=== PATIENT | female | born 1965 | race Caucasian/White ===

== ENCOUNTER 2017-08-22 05:36 | Observation (INO) | payer OTHER ==
[2017-08-19 10:34] VITALS: BMI 28.0
[~2017-08-22] VITALS: Ht 165.1 cm; Wt 76.4 kg
[2017-08-22] VITALS (8 sets, daily range): BP systolic 109–136; BP diastolic 40–85; PULSE 76–104; TEMP 36.3–36.9; O2SAT 93–98; Ht 165.1 cm; Wt 76.4 kg
[~2017-08-22 05:36] MED LIST: BCPILLS PO; BUSP15TA70 PO; GARL10007 PO; MULT-506 PO; PROP80TA2 PO; SERT100T PO
[2017-08-22] MEDS ORDERED: LACTATED RINGER'S 1000ML 1,000 ML IV SCH ×3 (06:00→12:00)
[2017-08-22] MEDS ORDERED: CEFAZOLIN 2000MG IV PUSH 10 ML IV SCH (06:00)
[2017-08-22] MEDS ORDERED: CEFAZOLIN 3000MG IV PUSH 15 ML IV SCH (06:00)
[2017-08-22 06:37] LABS: MEAN CELL VOLUME 91.5 fL (80-100); MEAN CORPUSCULAR HEMOGLOBIN 30.7 pg (25-34); MEAN PLATELET VOLUME 9.9 fL (7.4-10.4); PLATELET COUNT 309 K/uL (130-400); RED BLOOD COUNT 4.37 M/uL (4.2-5.4); WHITE BLOOD COUNT 8.03 K/uL (4.8-10.8)
[2017-08-22 06:40] LABS: MEAN CORPUSCULAR HGB CONC 33.5 g/dl (32-36)
[2017-08-22] MEDS ORDERED: DEXAMETHASONE SOD INJ 4 MG/ML VIAL ONE (06:47)
[2017-08-22] MEDS ORDERED: PROPOFOL IV EMULSION 10 MG/ML 20 ML VIAL IV ONE (06:47)
[2017-08-22] MEDS ORDERED: FENTANYL CITRATE INJ 50 MCG/1 ML 2 ML VIAL ONE ×2 (06:47→08:01)
[2017-08-22] MEDS ORDERED: ONDANSETRON INJ 2 MG/ML 2 ML VIAL ONE ×2 (06:47→08:44)
[2017-08-22] MEDS ORDERED: CISATRACURIUM BESYLATE IV SOLN 2 MG/ML 10 ML VIAL ONE (06:47)
[2017-08-22] MEDS ORDERED: MIDAZOLAM HCL 1 MG/ML 2ML VIAL ONE (06:47)
[2017-08-22] MEDS ORDERED: HYDROmorphone INJ 2 MG/ML SYR/VIAL ONE (06:48)
[2017-08-22] MEDS ORDERED: SODIUM CHLORIDE 0.9% INJ 10 ML VIAL ONE (06:52)
[2017-08-22] MEDS ORDERED: METHYLENE BLUE 0.5% 10 ML VIAL ONE (06:59)
[2017-08-22] MEDS ORDERED: SCOPOLAMINE 1.5 MG TDSY TD ONE ×2 (07:03→07:15)
--- NOTE | 2017-08-22 07:14 | History & Physical Bridge Note ---
H&P Re-Evaluation Bridge Note: I have examined the patient, reviewed the History & Physical and in the interval since the performance of the History & Physical I have noted the following changes of clinical significance: No changes noted
[2017-08-22] MEDS ORDERED: HYDROmorphone INJ 2 MG/ML SYR/VIAL IV PRN (07:15)
[2017-08-22] MEDS ORDERED: EpHEDrine SULFATE INJ 50 MG/ML AMP IV PRN (07:15)
[2017-08-22] MEDS ORDERED: NALOXONE HCL 0.4 MG/1 ML VIAL/CARP IV PRN (07:15)
[2017-08-22] MEDS ORDERED: ONDANSETRON INJ 2 MG/ML 2 ML VIAL IV PRN ×2 (07:15→10:15)
[2017-08-22] MEDS ORDERED: PHENYLEPHRINE 100MCG/ML 5ML SYR IV PRN (07:15)
[2017-08-22] MEDS ORDERED: LABETALOL HCL IV 5 MG/ML 20ML IV PRN (07:15)
[2017-08-22] MEDS ORDERED: FENTANYL CITRATE INJ 50 MCG/1 ML 2 ML VIAL IV PRN (07:15)
[2017-08-22] MEDS ORDERED: MEPERIDINE HCL 25 MG/ML CARP IV PRN (07:15)
[2017-08-22] MEDS ORDERED: ATROPINE SULFATE 0.1 MG/ML 5ML SYR IV PRN (07:15)
[2017-08-22] MEDS ORDERED: FLUMAZENIL 0.1 MG/1 ML 10 ML VIAL IV PRN (07:15)
[2017-08-22] MEDS ORDERED: OXYC-57 PO (07:15)
--- NOTE | 2017-08-22 07:17 | Discharge Instructions ---
Discharge Instructions Date of Service Aug 22, 2017. Visit Reason for Visit: Abnormal Uterine Bleeding, Chronic Migraine Discharge Discharge Diagnosis / Problem: Hysterectomy BSO Discharge Goals Goal(s): Specific goals Activity Recommendations Activity Limitations: per Instructions/Follow-up section Anesthesia . Post Anesthesia Instructions: If you have had General Anesthesia or IV Sedation: * Do not drive today. * Resume driving when surgeon permits. * Do not make important decisions or sign legal documents today. * Call surgeon for: 1. Temperature elevations greater than 101 degrees F. 2. Uncontrollable pain. 3. Excessive bleeding. 4. Persistent nausea and vomiting. 5. Medication intolerance (nausea, vomiting or rash). * For nausea and vomiting use only clear liquids such as: tea, soda, bouillon until nausea subsides, then gradually increase diet as tolerated. * If you have any concerns or questions, call your surgeon's office. If physician is unavailable and it is an emergency, call 911 or go to the nearest emergency room. . Instructions / Follow-Up Instructions / Follow-Up POST OPERATIVE: BOWEL FUNCTION/MEDICATIONS: 1. Constipation pain and discomfort are the most common complaints 5-7 days after surgery. Points 2-6 address the things that can help. 2. Chewing gum can help stimulate the gut and help improve digestion and motility. 3. Milk of Magnesia 1-2 times per day until return of bowel function. 4. Colace is a stool softener that helps. Taking this 2-3 times per day until bowel function returns to normal is highly recommended. 5. Dulcolax is a laxative that may be used if several days have passed without a bowel movement. Alternatively Miralax may be used daily instead. 6. Drink plenty of fluids as this will also reduce constipation. 7. Narcotic pain medications will be prescribed by your physician. They are safe to use and we encourage you to use them. If you are not allergic, ibuprofen will also be prescribed. Many patients will be able to transition off of the narcotic medications to ibuprofen by postoperative day 3. ACTIVITY RECOMMENDATIONS: 1. Get plenty of rest and listen to your body. If you are tired, take a nap. 2. You may shower, but do not take a tub bath until you see your doctor at the 2 week post operative visit. 3. Absolutely NO intercourse and nothing in the vagina until you are examined by your doctor at the 6 week visit. At that visit it will be determined when such activities can be resumed. This can range from 6-12 weeks after your surgery depending on healing time. 4. The main physical activity in the first week should be walking. By the second week you can slowly increase activity. There are no limits on walking up and down stairs. 5. Do not lift more than 5-10 lbs for 4 weeks. Remember the "one-handed rule", i.e. if you can lift something with only one hand it's likely okay. 6. Minimize probation supervisor like vacuuming and exercising for 4 weeks. "Overdoing it" can lead to incisions not healing, pain and vaginal bleeding , so again, listen to your body. 7. Driving can be resumed when you feel able. Do not drive within 24 hours of taking a narcotic medication. EXPECTATIONS: 1. Vaginal spotting, bleeding and discharge are common after surgery. There may even be an odor to the discharge which is often related to sutures used in the vagina. If you experience heavy vaginal bleeding, call the office number day or night [phone]. 2. Bladder discomfort is common after surgery from the catheter. This usually resolves in 1-2 weeks. 3. By the end of the 3rd or 4th week you should be feeling much better. It may take up to 6 weeks for your energy levels to return to normal. 4. Narcotic medications have side effects such as: dizziness, headache, nausea and/or vomiting. If you suspect your pain medication is causing problems, call our office and we may be able to prescribe an alternate medication. 5. The skin incisions are often covered with a liquid bandage. This will gradually peel off over time. CALL THE OFFICE IF YOU HAVE ANY OF THE FOLLOWIN. Temperature of 101 degrees or higher. 2. Severe abdominal or pelvic pain not relieved by pain medication. 3. Persistent nausea or vomiting. 4. Increased pain with urination or difficulty urinating. 5. Bright red bleeding that soaks more than 1 pad per hour. CONTACT PHONE NUMBERS: Main Office: [phone] Surgical Nurse: [phone] extension [phone] FOLLOW-UP: Post-Operative Appointments: * Individual instructions will have been given about the timing of your first examination, but this is usually at the end of the second week home. * You will need to call the office at soon after discharge to make the appointment for your post-op check-up if it has not already been scheduled. * Additional information regarding activity, sexual intercourse and when to return to work will be given at this appointment. WE WISH YOU A SPEEDY RECOVERY! Diet Recommendations Recommended Home Diet: resume previous diet Pending Studies Studies pending at discharge: no Medical Emergencies . Who to Call and When: Medical Emergencies: If at any time you feel your situation is an emergency, please call 911 immediately. . Non-Emergent Contact Non-Emergency issues call your: Primary Care Provider . . "Provider Documentation" section prepared by Yusra Price. . [place] Drug Monitoring Program Search Results: no issues identified
[2017-08-22] MEDS ORDERED: CEFAZOLIN SOD 2000MG/10 ML IV PUSH IV ONE (07:23)
[2017-08-22] MEDS ORDERED: EpHEDrine SULFATE 50MG/5ML SYR ONE (08:06)
[2017-08-22] MEDS ORDERED: PHENYLEPHRINE 100MCG/ML 5ML SYR ONE (08:06)
--- NOTE | 2017-08-22 08:53 | [facility] Post Operative Brief Note ---
Immediate Operative Summary Operative Date Aug 22, 2017. Pre-Operative Diagnosis Menorrhagia, migraines Post-Operative Diagnosis Menorrhagia, migraines Procedure(s) Performed Total Laparoscopic Hysterectomy; Bilateral Salpingo-Oophorectomy, Cystoscopy Yesi Surgeon Dr. Yusra Price Legal Assistant Surgeon(s) None Estimated Blood Loss 10 mL Findings fibroid uterus. Slightly enlarged L ovary. Normal right ovary and tubes. Specimens Permanent specimens A: Uterus, cervix, bilateral fallopian tubes and ovaries Complication(s) None Disposition Recovery Room / PACU
--- NOTE | 2017-08-22 09:09 | OPERATIVE REPORT ---
DATE OF OPERATION: 08/22/2017 PREOPERATIVE DIAGNOSES: 1. Menorrhagia. 2. Migraines. POSTOPERATIVE DIAGNOSES: Same. PROCEDURE: Total laparoscopic hysterectomy, BSO and cystoscopy. SURGEON: Yusra Price MD. HOSTEL PARENT: None. ESTIMATED BLOOD LOSS: 10 mL. FINDINGS: Fibroid uterus, slightly enlarged left ovary, normal right ovary and tubes. SPECIMENS: Uterus, cervix, bilateral fallopian tubes and ovaries. COMPLICATIONS: None. DISPOSITION: Stable to the recovery room. DESCRIPTION OF PROCEDURE: Edgar is a 51-year-old female who desired total laparoscopic hysterectomy. She was brought to the operating room, placed on the table in the dorsal lithotomy position with Yellofin stirrups, prepped and draped in standard sterile fashion and a hard time-out was taken prior to proceeding. A Fernand[employer] uterine manipulator were placed. Attention was then turned to the abdomen where optical entry was made above the umbilicus. The abdomen was then insufflated and patient was placed in Trendelenburg position. Under direct visualization, right and left lower quadrant ports were placed and the robot was then docked. Dissection began by opening the retroperitoneal space between the IP ligament and the round ligament on the right side, a window was created around the right IP ligament which was ligated and divided. Dissection was then carried up to the round ligament which was ligated and divided. The uterine artery was skeletonized. Attention was then turned to the left side where a retroperitoneal window was again created between the IP and the round ligament. A window was created around the IP, which was then ligated and divided. The round ligament was ligated and divided. The uterine artery was again skeletonized. At this point, the bladder flap was then created across the entire vesicovaginal flap and then each uterine artery was ligated and divided in turn. Circumferential colpotomy was then completed and the cervix, uterus, tubes, and both ovaries were delivered en block out the vagina. Using a V-Loc suture the upper vaginal cuff was closed in a running nonlocked manner as is typical. At the completion of the repair, the needle was removed via the robotic port. Please note that both prior to dissection beginning and after the dissection was completed, both ureters were easily visualized and they were seen to be peristalsing normally. Methylene blue was administered and cystoscopy then proceeded, which identified a jet of blue stained urine from each ureteral orifice. The bladder was then drained and closure of the port sites proceeded with a UR-6 at the fascial layer of the umbilicus, 4-0 Monocryl at all sites and Dermabond glue being applied to the skin. The patient was then transferred in stable condition to the recovery room. I attest to the content of the Intraoperative Record and any orders documented therein. Any exception s are noted below.
[2017-08-22] MEDS ORDERED: PROMETHAZINE HCL INJ 12.5 MG in SODIUM CHLORIDE 0.9% 50ML 50 ML IV PRN (10:15)
[2017-08-22] MEDS ORDERED: IBUPROFEN 600 MG TAB PO PRN (10:15)
[2017-08-22] MEDS ORDERED: MEPERIDINE HCL 50 MG/ML CARP IV PRN ×2 (10:15)
[2017-08-22] MEDS ORDERED: OXYCODONE/ACETAMINOPHEN 5-325 TAB PO PRN ×2 (10:15)
[2017-08-22] MEDS ORDERED: SIMETHICONE 80 MG CHEW PO PRN (10:15)
[2017-08-22] MEDS ORDERED: ACETAMINOPHEN 325 MG TAB PO PRN (10:15)
[2017-08-22] MEDS ORDERED: KETOROLAC TROMETHAMINE 30 MG/ML VIAL IV. PRN (10:15)
[2017-08-22] MEDS ORDERED: IV FLUIDS COMPLETED PRN (10:45)
--- NOTE | 2017-08-22 10:46 | Anesthesiology Progress Note ---
Anesthesia Post Op Note Date & Time Aug 22, 2017 at 10:46 Vital Signs Pain Intensity: 3 Vital Signs Past 12 Hours Date Time Temp Pulse Resp B/P (MAP) Pulse Ox O2 Delivery O2 Flow Rate FiO2 08/22/17 10:40 98 18 115/67 98 Nasal Cannula 4 08/22/17 10:30 98 16 115/64 99 Nasal Cannula 4 08/22/17 10:20 95 22 128/75 97 Nasal Cannula 4 08/22/17 10:10 36.6 93 18 121/95 98 Nasal Cannula 4 08/22/17 10:00 92 14 121/89 98 Oxymask 15 08/22/17 09:50 70 18 123/66 89 Oxymask 15 08/22/17 09:40 79 16 138/68 96 Oxymask 15 08/22/17 09:39 79 16 138/68 96 Oxymask 15 08/22/17 09:29 36.0 77 18 128/69 94 Oxymask 15 08/22/17 06:05 36.7 76 20 134/85 (101) 98 Room Air Notes Mental Status: alert / awake / arousable, participated in evaluation Pt Amnestic to Procedure: Yes Nausea / Vomiting: adequately controlled Pain: adequately controlled Airway Patency, RR, SpO2: stable & adequate BP & HR: stable & adequate Hydration State: stable & adequate Anesthetic Complications: no major complications apparent
[2017-08-22 15:24] LABS: HEMATOCRIT 36.7 % (37-47)
[2017-08-22] MEDS ORDERED: DOCUSATE SODIUM 100 MG CAP PO SCH (21:00)
--- NOTE | 2017-08-27 08:53 | Discharge Summary ---
Discharge Summary Date of Service Aug 27, 2017. Discharge Summary Admission Date: Aug 22, 2017 at 06:30 Discharge Date: Aug 22, 2017 Discharge Disposition: Home Principal Diagnosis: Menorrhagia Medication Reconciliation New Medications: Oxycodone/Acetaminophen 5MG/325MG (Percocet 5MG/325MG) Tab 1 TABLET PO Q4H PRN for Pain, #15 TAB Continued Medications: Buspirone Hcl (Buspar) 15 Mg Tab 7.5 MG PO BID, TAB Garlic (Garlic) 1,000 Mg Cap 1000 MG PO QAM Multivitamin (Multivitamin) Tab 1 TAB PO QAM, TAB Propranolol (Inderal) 80 Mg Tab 80 MG PO QAM, TAB Sertraline Hcl (Zoloft) 100 Mg Tab 200 MG PO HS, TAB Discontinued Medications: Control Pills ( Control Pills) Tab 1 TAB PO DAILY, TAB Hospital Course Total Time Spent: Less than 30 minutes This includes examination of the patient, discharge planning, medication reconciliation, and communication with other providers. Discharge Instructions Please refer to the electronic Patient Visit Report (Discharge Instructions) for additional information.
== END 2017-08-22 18:05 | disposition home or self-care (01) ==
LOC: C.ACU 05:36 → C.MS4N 06:30
PROVIDERS: ADMIT Obstetrics & Gynecology; ATTEND Obstetrics & Gynecology
DX: N92.0 Excessive and frequent menstruation with regular cycle (principal); G43.909 Migraine, unspecified, not intractable, without status migrainosus; N80.0 Endometriosis of uterus; N83.8 Other noninflammatory disorders of ovary, fallopian tube and broad ligament; Z88.0 Allergy status to penicillin; Z88.2 Allergy status to sulfonamides; Z79.3 Long term (current) use of hormonal contraceptives; I10 Essential (primary) hypertension; Z98.890 Other specified postprocedural states; Z82.49 Family history of ischemic heart disease and other diseases of the circulatory system

== ENCOUNTER → 2017-09-11 | Outpatient (CLI) | payer OTHER ==
[~2017-09-11] MED LIST changes: -BCPILLS PO; +OXYC-57 PO
[2017-09-11 16:38] LABS: ALBUMIN 3.9 gm/dl (3.4-5.0); ALT/SGPT 34 U/L (12-78); AST/SGOT 20 U/L (15-37); BLOOD UREA NITROGEN 18 mg/dl (7-18); CALCIUM 9.6 mg/dl (8.5-10.1); CARBON DIOXIDE 29 mmol/L (21-32); CREATININE 0.87 mg/dl (0.60-1.20); GLUCOSE 92 mg/dl (70-99); POTASSIUM 4.5 mmol/L (3.5-5.1); SODIUM 136 mmol/L (136-145)
[2017-09-11 16:40] LABS: ALKALINE PHOSPHATASE 75 U/L (45-117); TOTAL PROTEIN 7.8 gm/dl (6.4-8.2)
== END | disposition home or self-care (01) ==
LOC: C.LAB1850 12:04
PROVIDERS: ATTEND Obstetrics & Gynecology
DX: N28.9 Disorder of kidney and ureter, unspecified (principal)

== ENCOUNTER 2024-08-09 05:14 | Observation (INO) ==
--- NOTE | 2024-07-13 14:02 | PAT Medication Instructions ---
Medication Instructions Date of Service July 13, 2024 Home Medications Medication Instructions Recorded estradiol 10 mcg vaginal tablet 10 mcg vaginal 2XWK #24 tabs 02/10/24 (Yuvafem) omeprazole 20 mg capsule,delayed release 20 mg PO QPM atorvastatin 10 mg tablet (Lipitor) 10 mg PO QPM estradiol 10 mcg vaginal tablet (Yuvafem) 10 mcg vaginal 2XWK Vitamin B2 With Magnesium 1 tab PO DAILY calcium 600 mg (as carbonate)-vitamin D3 5 mcg (200 unit) tablet 1 tab PO DAILY sertraline 100 mg tablet 200 mg PO HS anxiety DO NOT take the morning of surgery estradiol 10 mcg vaginal tablet (Yuvafem) 10 mcg vaginal 2XWK Vitamin B2 With Magnesium 1 tab PO DAILY calcium 600 mg (as carbonate)-vitamin D3 5 mcg (200 unit) tablet 1 tab PO DAILY Take evening before surgery omeprazole 20 mg capsule,delayed release 20 mg PO QPM atorvastatin 10 mg tablet (Lipitor) 10 mg PO QPM sertraline 100 mg tablet 200 mg PO HS anxiety MORNING OF SURGERY: NOTHING TO EAT OR DRINK AFTER MIDNIGHT Other Notes If you have any questions please call us at [phone] or [phone] or [phone] or [phone]
--- NOTE | 2024-07-19 14:20 | Anesthesiology Consultation ---
Date of Service July 19, 2024 Assessment & Plan (1) Encounter for pre-operative examination: Chart Review Chart Review: Acceptable Risk for Surgery and Patient seen in Pre Admission Testing Teaching & Discussion Pre-Anesthesia Teaching/Discussion Notes: Instructed NPO after midnight before surgery, except medications with 15 cc of water. Medication instructions provided according to the PAT guidelines. History Surgery Operation Date: 08/09/24 12:50 Proposed Procedures p C5-C6 Artificial Disc Arthroplasty - Kranthi De La Rosa MD Height/Weight Height: 5 ft 5 in Weight: 80.6 kg Allergies Allergy/AdvReac Type Severity Reaction Status Date / Time Penicillins Allergy Unknown HIVES Verified 07/09/24 10:21 Sulfa (Sulfonamide Allergy Unknown HIVES Verified 07/09/24 10:21 Antibiotics) acetazolamide AdvReac Mild Verified 07/09/24 10:21 lamotrigine [From Lamictal] AdvReac Mild Nausea Verified 07/09/24 10:21 fluoxetine AdvReac Unknown HYPERACTIVI Verified 07/09/24 10:21 TY olanzapine AdvReac "made her Verified 07/09/24 10:21 dizzy" zolmitriptan AdvReac Chest Verified 07/09/24 10:21 pressure, dizziness, fatigue Medications Home Medications Medication Instructions Recorded Confirmed Last Taken omeprazole 20 mg capsule,delayed 20 mg PO QPM 02/13/22 07/09/24 Unknown release atorvastatin 10 mg tablet (Lipitor) 10 mg PO QPM 05/27/22 07/09/24 Unknown estradiol 10 mcg vaginal tablet 10 mcg vaginal 2XWK #24 tabs 02/10/24 07/09/24 Unknown (Yuvafem) Vitamin B2 With Magnesium 1 tab PO DAILY 07/09/24 07/09/24 Unknown calcium 600 mg (as 1 tab PO DAILY 07/09/24 07/09/24 Unknown carbonate)-vitamin D3 5 mcg (200 unit) tablet sertraline 100 mg tablet 200 mg PO HS anxiety 07/09/24 07/09/24 Unknown Past Medical History Medical History (Updated 07/21/24 @ 14:11 by Gricelda Dave PA-C) Anxiety Arnold-Chiari malformation follows with [facility], last office visit 11/27/23 Cervical disc disorder at C5-C6 level with radiculopathy Depression GERD (gastroesophageal reflux disease) controlled, stable per pt H/O irritable bowel syndrome History of anesthesia reaction "they said i fight when i'm under" - reports only for colonoscopy History of postoperative nausea and vomiting zofran helps, denies needing scop patch Hx of ovarian cyst Hypertension controlled, stable per pt Migraine with aura 2x per month with loss of vision- no meds- has had numerous testing - reports "it always feels like I'm floating" PTSD (post-traumatic stress disorder) Patient denies h/o stroke, seizures, heart attack, heart failure, DM, blood clots/DVTs or blood transfusions. Exercise / Class Metabolic Activity II 4-5 Yardwork/Stairs/Walk up hill (denies chest discomfort or shortness of breath with one flight of stairs) Past Family History Family History Mother Myocardial infarction, Onset Age: 42 Father Prostate cancer Pure hypercholesterolemia Family/Other Hypertension Murmur Sister Asthma Allergic rhinitis Past Surgical History Surgical History History of carpal tunnel surgery of right wrist with local History of total hysterectomy with bilateral salpingo-oophorectomy (BSO) For: Adeno/Fibroids/menorrhagia/menstrual migraines Hx of colonoscopy S/P sinus surgery S/P tonsillectomy S/P wisdom tooth extraction Past Anesthesia History No Family Hx of Anesthesia Complications History of PONV History of PONV (denies needing scop patch) and Hx of Motion Sickness Social History Smoking Status: Never smoker Do You Dip or Chew Tobacco: No Hx Alcohol Use: No Hx Substance Use: No substance use type: does not use Review of Systems Patient denies chest pain, shortness of breath, dyspnea on exertion, fever, chills, cough, wheezing, or palpitations. Physical Exam Vital Signs Vitals BP 132/84 P 92 TEMP 98.2 SP02 98% on RA RESP 18 Physical Patient resting comfortably in chair in no acute distress, alert and oriented, responding appropriately throughout visit Full cervical extension range of motion without pain TMD 3.5 finger breadths Mallampati Score 3 Dentition: several implants and crowns, denies chipped or loose teeth, caps, or bridges Lungs: normal respiratory effort. Good air movement, clear throughout to auscultation, no adventitious breath sounds Cardiac: regular rate and rhythm, no murmurs noted Carotid arteries: negative bruit bilat Lab Results Anesthesia Preop Results Results Anesthesia Widget: WBC 7.95 K/ul (4.8-10.8) 07/19/24 Hgb 13.3 g/dl (12.0-16.0) 07/19/24 Hct 39.1 % (37.0-47.0) 07/19/24 Plt 252 K/uL (130-400) 07/19/24 Na 141 mmol/L (136-145) 07/19/24 K 4.0 mmol/L (3.5-5.1) 07/19/24 Cl 104 mmol/L (98-107) 07/19/24 CO2 28 mmol/L (21-32) 07/19/24 BUN 16 mg/dl (6-23) 07/19/24 Creat 0.69 mg/dl (0.6-1.2) 07/19/24 Glucose Level 109 mg/dl (70-99(Fasting)) H 07/19/24 PT 10.3 Seconds (9.0-12.0) 07/19/24 PTT 27 Seconds (21-31) 07/19/24 INR 0.9 (0.9-1.1) 07/19/24 Blood Type AB Positive 07/19/24 Antibody Screen NEGATIVE 07/19/24 Testing Electrocardiogram Date: 07/19/24 NSR, rate [address] abnormality Chest X-Ray Date: 07/19/24 No acute cardiopulmonary abnormalities identified. Cervical Spine Date: 06/02/24 1. Multilevel cervical spondylosis as above, greatest at C5-C6 and C6-C7. See discussion for detailed [id number] analysis. 2. No destructive bony process is seen. 3. The cervical cord is normal in morphology and signal intensity.
[2024-08-09] MEDS: VANCOMYCIN HCL 1,250 MG in SODIUM CHLORIDE 0.9% 250 ML IV SCH (05:59)
[2024-08-09] MEDS: LR 15ML/HR IV SCH (05:59)
[2024-08-09] MEDS: ACETAMINOPHEN 500 MG TAB PO SCH (06:01)
[2024-08-09] MEDS: GABAPENTIN 600 MG DOSE PO SCH (06:01)
[2024-08-09] MEDS: LR 60ML/HR IV SCH (06:02)
[2024-08-09] MEDS ORDERED: PROMETHAZINE HCL 6.25 MG in SODIUM CHLORIDE 0.9% 50 ML IV PRN (06:54)
[2024-08-09] MEDS ORDERED: ATROPINE SULFATE 0.1 MG/ML 10ML SYR IV PRN (06:54)
[2024-08-09] MEDS ORDERED: HYDROmorphone INJ 2 MG/ML SYR/VIAL IV PRN (06:54)
[2024-08-09] MEDS ORDERED: ePHEDrine sulfate 50 MG/ML AMP IV PRN (06:54)
[2024-08-09] MEDS ORDERED: PROPOFOL IV EMULSION 10 MG/ML 100 ML VIAL IV ONE (07:02)
[2024-08-09] MEDS ORDERED: PROPOFOL IV EMULSION 10 MG/ML 20 ML VIAL IV ONE (07:07)
[2024-08-09] MEDS ORDERED: ONDANSETRON INJ 2 MG/ML 2 ML VIAL ONE (07:07)
[2024-08-09] MEDS ORDERED: ROCURONIUM BROMIDE 10 MG/ML 5 ML VIAL IV ONE (07:07)
[2024-08-09] MEDS ORDERED: DEXAMETHASONE SOD INJ 4 MG/ML VIAL ONE (07:07)
[2024-08-09] MEDS ORDERED: MIDAZOLAM HCL 1 MG/ML 2ML VIAL ONE (07:07)
[2024-08-09] MEDS ORDERED: LIDOCAINE 2% 2 ML VIAL/AMP(20MG/ML) INFIL ONE (07:07)
[2024-08-09] MEDS ORDERED: fentaNYL citrate PF 100 MCG/2 ML VIAL ONE ×2 (07:07→08:26)
--- NOTE | 2024-08-09 07:19 | History & Physical Bridge Note ---
Date of Service August 09, 2024 History & Physical Bridge Note I have examined the patient, reviewed the History & Physical and in the interval since the performance of the History & Physical I have noted the following changes of clinical significance: no changes noted
[2024-08-09] MEDS ORDERED: SCOPOLAMINE 1 MG/72 HR TDSY PATCH TD ONE (07:29)
[2024-08-09] MEDS: VANCOMYCIN HCL 1000MG/20ML VIAL ONE (09:58)
[2024-08-09] MEDS: FLOSEAL HEMOSTATIC MATRIX 5ML TOP ONE (09:58)
[2024-08-09] MEDS: GELATIN SPONGE 12-7MM ONE (09:59)
[2024-08-09] MEDS: THROMBIN 5000 UNITS KIT ONE (09:59)
[2024-08-09] MEDS ORDERED: SUGAMMADEX SODIUM 200 MG/2 ML VIAL IV ONE (10:00)
--- NOTE | 2024-08-09 10:42 | Fluoroscopy Report ---
FL cervical 2-3V CLINICAL HISTORY: C5-C6 ARTIFICIAL DISC ARTHROPLASTY COMPARISON STUDY: Cervical spine MRI 06/02/2024 FLUOROSCOPY TIME: 89.8 seconds FLUOROSCOPY IMAGES: 6 EXPOSURE DOSE: 32.6 to mGy FINDINGS: Endotracheal tube is noted. Anterior approach discectomy changes are noted at what is label ed the C5-C6 level. No unexpected opaque foreign bodies. Note that the images were submitted followin g completion of the surgery. IMPRESSION: Fluoroscopic assistance as above. ACT 112: Negative or not required by law. Electronically signed by: Zachery Jordan M.D. 08/09/2024 10:39 AM
[2024-08-09] MEDS ORDERED: NALOXONE HCL 0.4 MG/1 ML VIAL/CARP IV PRN (10:55)
[2024-08-09] MEDS ORDERED: diphenhydrAMINE Capsule 25 MG CAP PO PRN (10:55)
[2024-08-09] MEDS ORDERED: ONDANSETRON INJ 2 MG/ML 2 ML VIAL IV PRN (10:55)
[2024-08-09] MEDS ORDERED: HYDROmorphone INJ 0.5 MG/0.5 ML SYR IV PRN (10:55)
[2024-08-09] MEDS ORDERED: DO NOT ADMINISTER FLU VACCINE PRN (10:55)
[2024-08-09] MEDS ORDERED: ONDANSETRON 4 MG OD TAB PO PRN (10:55)
[2024-08-09] MEDS ORDERED: METOCLOPRAMIDE HCL INJ 5 MG/ML 2 ML VIAL IV PRN (10:55)
[2024-08-09] MEDS ORDERED: ACETAMINOPHEN 1,000 MG/100 ML VIAL IV PRN (10:55)
[2024-08-09] MEDS ORDERED: hydrOXYzine HCl 25 MG TAB PO PRN (10:55)
[2024-08-09] MEDS ORDERED: DO NOT ADMINISTER PNEUMOCOCCAL VACCINE PRN (10:55)
[2024-08-09] MEDS ORDERED: LORazepam 0.5 MG TAB PO PRN (10:55)
[2024-08-09] MEDS ORDERED: MAGNESIUM HYDROXIDE SUSP 30 ML UDC PO PRN (10:55)
[2024-08-09] MEDS ORDERED: FAMOTIDINE 20 MG TAB PO PRN (10:55)
[2024-08-09] MEDS ORDERED: ALUMINUM/MAGNESIUM SUSP 30 ML UDC PO PRN (10:55)
[2024-08-09] MEDS ORDERED: SOD PHOSPHATE/SOD BIPHOSPHATE ENEMA 132 ML BTL PR PRN (10:55)
[2024-08-09] MEDS ORDERED: LORazepam 2 MG/1 ML VIAL IV PRN (10:55)
[2024-08-09] MEDS ORDERED: bisacodyL 10 MG SUPP PR PRN (10:55)
[2024-08-09] MEDS ORDERED: dexAMETHasone 8 MG in SYRINGE 0 ML IV PRN (10:55)
[2024-08-09] MEDS ORDERED: RACEPINEPHRINE 2.25% NEBU SOLN 0.5 ML VIAL INH PRN (10:55)
[2024-08-09] MEDS ORDERED: PROMETHAZINE 12.5 MG/50.5 ML BAG IV PRN (10:55)
--- NOTE | 2024-08-09 10:59 | Post Operative Brief Note ---
[facility] Immediate Post Op with CF Date of Surgery August 09, 2024 Pre & Post Diagnosis Operation Date: 08/09/24 07:15 Pre-Op Diagnosis: Cervical Disc Disorder at C5-C6 Level with Radiculopathy Post-Op Diagnosis: Cervical Disc Disorder at C5-C6 Level with Radiculopathy I identified the patient and participated in the time-out.: Yes Procedure Operation Date: 08/09/24 07:15 Actual Procedures p C5-C6 Artificial Disc Arthroplasty(Not Applicable) - Kranthi De La Rosa MD Surgeon Kranthi De La Rosa MD Multi Spindle Operator none Estimated Blood Loss 5 Findings Consistent with Post-Op Diagnosis Specimens Specimen Description: None per surgeon
[2024-08-09] MEDS: ALBUT/IPRATROP 3MG/0.5MG NEB 3 ML VIAL ONE (11:11)
[2024-08-09 12:00] LABS: BUN Creatinine Ratio 18.9 (10-20); Blood Urea Nitrogen 14 mg/dl (6-23); Calcium 8.8 mg/dl (8.6-10.3); Carbon Dioxide 25 mmol/L (21-32); Chloride 106 mmol/L (98-107); Creatinine Clr Calc Pharmacy 85.2 ml/min; Glucose 146 mg/dl (70-99(Fasting))
[2024-08-09] MEDS: ALBUT/IPRATROP 3MG/0.5MG NEB 3 ML VIAL NEB STA (12:42)
[2024-08-09 12:50] LABS: Potassium 3.9 mmol/L (3.5-5.1)
--- NOTE | 2024-08-09 15:13 | Anesthesiology Progress Note ---
Date of Service August 09, 2024 Anesthesia Post Procedure Vital Signs Vital Signs: Temp Pulse Pulse Resp BP Pulse Ox O2 Del Method 08/09/24 14:21 36.8 C 107 H 18 150/80 H 93 Nasal Cannula 08/09/24 14:03 103 H 16 97 Nasal Cannula 08/09/24 13:43 105 H 16 159/89 H 95 Nasal Cannula 08/09/24 12:59 36.6 C 107 H 18 154/87 H 92 Nasal Cannula 08/09/24 12:25 36.7 C 112 H 16 155/74 H 93 Nasal Cannula 08/09/24 12:00 104 H 16 152/72 H 95 Nasal Cannula 08/09/24 11:50 36.8 C 107 H 16 112/81 96 Nasal Cannula 08/09/24 11:40 105 H 13 151/78 H 97 Nasal Cannula 08/09/24 11:30 108 H 13 153/79 H 96 Nasal Cannula 08/09/24 11:20 105 H 15 155/89 H 97 Nasal Cannula 08/09/24 11:10 106 H 20 143/85 H 97 Nebulizer 08/09/24 11:00 108 H 15 154/94 H 99 Non-rebreather 08/09/24 10:50 104 H 21 156/89 H 93 Non-rebreather 08/09/24 10:40 86 14 155/82 H 93 Oxymask 08/09/24 10:30 83 17 139/86 94 Oxymask 08/09/24 10:22 36 C L 79 18 121/75 94 Oxymask 08/09/24 05:47 36.7 C 87 18 154/91 H 95 Room Air O2 Flow Rate 08/09/24 14:21 2 08/09/24 14:03 3 08/09/24 13:43 3 08/09/24 12:59 2 08/09/24 12:25 3 08/09/24 12:00 3 08/09/24 11:50 3 08/09/24 11:40 3 08/09/24 11:30 3 08/09/24 11:20 3 08/09/24 11:10 7 08/09/24 11:00 15 08/09/24 10:50 15 08/09/24 10:40 15 08/09/24 10:30 15 08/09/24 10:22 15 08/09/24 05:47 Transfer of Care Handoff Completed per policy Notes Mental Status: alert / awake / arousable and participated in evaluation Nausea / Vomiting: adequately controlled Pain: adequately controlled Airway Patency, RR, SpO2: stable & adequate BP & HR: stable & adequate Hydration State: stable & adequate Anesthetic Complications: no major complications apparent and Pt Satisfied with anesthetic care
--- NOTE | 2024-08-09 15:15 | Hospitalist Consultation ---
Date of Consultation August 09, 2024 Assessment & Plan (1) Cervical disc disorder at C5-C6 level with radiculopathy: S/p C5-C6 artificial disc arthroplasty 08/09 due to spondylosis, disc herniation, and cervical radiculopathy pre-op H&H stable, renal function stable, EKG NSR Ancef x 2 and Vanco x 1 stable post operatively - mildly tachycardic (107) and requiring 2L O2 via NC - expected HTN (165/93) with IV fluids and pain Pain management, VTE PPx, and bowel regimen per orthopedic team added AM CBC and BMP wean O2 as tolerated PT/OT to evaluate (2) Anxiety: continue home sertraline (3) GERD (gastroesophageal reflux disease): continue QPM PPI (4) Hyperlipidemia: continue home atorvastatin (5) Vestibular migraine: follows with neurology out patient - currently not on any medication Plan VTE ppx: per orthopedic team - SCDs Diet: advance as tolerated Dispo: med/surg Supervising Physician Co-Signing Physician Notes I personally saw and examined the patient. I independently reviewed the labs, imaging, problem list, medication list, past medical history and family history. I verified all saleh points and agree with Gladys Templeton PA-C with the following exceptions and/or additions: No acute concerns or questions from patient HS RRR, no murmurs, Chest CTAB, Abdo SNT No change to plan above History of Present Illness Reason for Consultation: surgery Requesting Physician: Dr. Estrella MD Attending Physician: Kranthi De La Rosa MD History of Present Illness Patient is a 58-year-old female with a past medical history of GERD, anxiety/depression, vestibular migraines, hyperlipidemia. She was seen at bedside due to a postop surgery consult. She had a 5 to C6 artificial disc arthroplasty today with Dr. De La Rosa. She is doing well postoperatively, has already walked a lap around the hallway has urinated twice. She stated that she does not have pain but more so soreness, 4/10. She does have some mild dizziness, denies nausea and vomiting. She has eaten a pudding without difficulty, advancing diet as tolerated for dinner. Patient denies vision changes, cough, dyspnea, dyspnea on exertion, chest pain, abdominal pain, nausea, vomiting, dysuria, hematuria, edema, numbness, tingling. Her home medications include atorvastatin, omeprazole, and sertraline. She stated that she no longer takes anything for her migraines as nothing has helped, has tried near 60 medications. She does not use oxygen at baseline. Denies history of nicotine use, alcohol use, VTE, DM, cancer. Allergies Allergy/AdvReac Type Severity Reaction Status Date / Time Penicillins Allergy Unknown HIVES Verified 08/09/24 05:43 Sulfa (Sulfonamide Allergy Unknown HIVES Verified 08/09/24 05:43 Antibiotics) acetazolamide AdvReac Mild Verified 08/09/24 05:43 lamotrigine [From Lamictal] AdvReac Mild Nausea Verified 08/09/24 05:43 fluoxetine AdvReac Unknown HYPERACTIVI Verified 08/09/24 05:43 TY olanzapine AdvReac "made her Verified 08/09/24 05:43 dizzy" zolmitriptan AdvReac Chest Verified 08/09/24 05:43 pressure, dizziness, fatigue Home Medications Medication Instructions Recorded Confirmed Type omeprazole 20 mg capsule,delayed 20 mg PO QPM 02/13/22 08/09/24 History release atorvastatin 10 mg tablet (Lipitor) 10 mg PO QPM 05/27/22 08/09/24 History estradiol 10 mcg vaginal tablet 10 mcg vaginal 2XWK #24 tabs 02/10/24 08/09/24 Rx (Yuvafem) Vitamin B2 With Magnesium 1 tab PO DAILY 07/09/24 08/09/24 History calcium 600 mg (as 1 tab PO DAILY 07/09/24 08/09/24 History carbonate)-vitamin D3 5 mcg (200 unit) tablet sertraline 100 mg tablet 200 mg PO HS anxiety 07/09/24 08/09/24 History oxycodone-acetaminophen 5 mg-325 1 tab PO TID #16 tabs 08/10/24 Rx mg tablet Patient History Medical History (Updated 08/09/24 @ 15:17 by Gladys Templeton PA-C) Cervical disc disorder at C5-C6 level with radiculopathy Migraine with aura 2x per month with loss of vision- no meds- has had numerous testing - reports "it always feels like I'm floating" Depression PTSD (post-traumatic stress disorder) Hx of ovarian cyst History of postoperative nausea and vomiting zofran helps, denies needing scop patch History of anesthesia reaction "they said i fight when i'm under" - reports only for colonoscopy Arnold-Chiari malformation follows with [place] [facility], last office visit 11/27/23 H/O irritable bowel syndrome Hypertension controlled, stable per pt Surgical History History of carpal tunnel surgery of right wrist with local Hx of colonoscopy History of total hysterectomy with bilateral salpingo-oophorectomy (BSO) For: Adeno/Fibroids/menorrhagia/menstrual migraines S/P tonsillectomy S/P sinus surgery S/P wisdom tooth extraction Family History Mother Myocardial infarction, Onset Age: 42 Father Prostate cancer Pure hypercholesterolemia Family/Other Hypertension Murmur Sister Asthma Allergic rhinitis Social History Smoking Status: Never smoker Second Hand Exposure: No; Do You Dip or Chew Tobacco: No; Hx Alcohol Use: No Hx Substance Use: No Preferred Language: Uzbek Communication Ability: Effective Manager Search Required: No Beliefs That Will Affect Care: None marital status: Current Living Situation: Spouse current occupational status: unemployed Feels Safe at Home: Yes Assistive Devices: Contacts Review of Systems Review of Systems: see HPI Physical Exam Physical Exam: The patient is awake, alert and oriented 3, well developed and well nourished, normocephalic and atraumatic, in no acute distress. Non-toxic appearing. HEENT- EOMI, mucous membranes moist. Hearing grossly intact. Neck collar in place. Heart-normal S1 and S2. No murmurs, rubs or gallops. Lungs-clear bilaterally, no respiratory distress, no accessory muscle use. 2L O2 via nasal canula. Abdomen-normal bowel sounds and soft. No ascites noted. Non-tender. Extremities- no clubbing, cyanosis, or edema. Rheumatologic-normal range of motion. Psychiatric-normal affect. Results & Data Results & Data Vital Signs (Past 12 Hours) Vital Signs Temp Pulse Pulse Resp BP Pulse Ox O2 Del Method 08/09/24 14:21 36.8 C 107 H 18 150/80 H 93 Nasal Cannula 08/09/24 14:03 103 H 16 97 Nasal Cannula 08/09/24 13:43 105 H 16 159/89 H 95 Nasal Cannula 08/09/24 12:59 36.6 C 107 H 18 154/87 H 92 Nasal Cannula 08/09/24 12:25 36.7 C 112 H 16 155/74 H 93 Nasal Cannula 08/09/24 12:00 104 H 16 152/72 H 95 Nasal Cannula 08/09/24 11:50 36.8 C 107 H 16 112/81 96 Nasal Cannula 08/09/24 11:40 105 H 13 151/78 H 97 Nasal Cannula 08/09/24 11:30 108 H 13 153/79 H 96 Nasal Cannula 08/09/24 11:20 105 H 15 155/89 H 97 Nasal Cannula 08/09/24 11:10 106 H 20 143/85 H 97 Nebulizer 08/09/24 11:00 108 H 15 154/94 H 99 Non-rebreather 08/09/24 10:50 104 H 21 156/89 H 93 Non-rebreather 08/09/24 10:40 86 14 155/82 H 93 Oxymask 08/09/24 10:30 83 17 139/86 94 Oxymask 08/09/24 10:22 36 C L 79 18 121/75 94 Oxymask 08/09/24 05:47 36.7 C 87 18 154/91 H 95 Room Air O2 Flow Rate 08/09/24 14:21 2 08/09/24 14:03 3 08/09/24 13:43 3 08/09/24 12:59 2 08/09/24 12:25 3 08/09/24 12:00 3 08/09/24 11:50 3 08/09/24 11:40 3 08/09/24 11:30 3 08/09/24 11:20 3 08/09/24 11:10 7 08/09/24 11:00 15 08/09/24 10:50 15 08/09/24 10:40 15 08/09/24 10:30 15 08/09/24 10:22 15 08/09/24 05:47 PG Care Time/CCT Total # of Minutes Spent Total Time Spent with Patient: Total time spent is greater than 50% in coordination of care (as documented) at patient's floor/unit and/or counseling patient: Coding Level of Care Code 02864 IN/OBS CONSULT LVL 3,45M Diagnoses Cervical disc disorder at C5-C6 level with radiculopathy M50.122 Anxiety F41.9 GERD (gastroesophageal reflux disease) K21.9 Hyperlipidemia E78.5 Vestibular migraine G43.809
[2024-08-09] MEDS: ceFAZolin 1000MG 1,000 MG/7.5 ML SYR IV SCH (17:12)
[2024-08-09] MEDS: ACETAMINOPHEN 500 MG TAB PO PRN (17:12)
--- NOTE | 2024-08-09 18:15 | Operative Report ---
PG Post Operative Report Pre & Post Diagnosis Operation Date: 08/09/24 07:15 Pre-Op Diagnosis: Cervical Disc Disorder at C5-C6 Level with Radiculopathy Post-Op Diagnosis: Cervical Disc Disorder at C5-C6 Level with Radiculopathy I identified the patient and participated in the time-out.: Yes Procedure Operation Date: 08/09/24 07:15 Actual Procedures p C5-C6 Artificial Disc Arthroplasty(Not Applicable) - Kranthi De La Rosa MD Surgeon Kranthi De La Rosa MD Retail Analyst none Estimated Blood Loss 5 Findings Consistent with Post-Op Diagnosis Specimens none Anesthesia Type General Complications none Description of Procedure 1. C5-6 artificial disc replacement, Mobi-C 13 x 15 x 4.5 mm. (68321) Patient was taken the operating room and after adequate anesthesia was positioned on the OSI flat top table in the supine position. A preprep was performed followed by then positioning the patient and bringing in fluoroscopy where I marked for the location of the incision followed by prep and drape. Procedure was started with a left-sided approach standard fashion, over the C5-6 area with careful dissection down in the standard fashion to the anterior aspect of the cervical spine. Radiographically confirmed the location followed by then mobilizing the soft tissues in this region. Distractor pins were then inserted under fluoroscopic control at C5-C6 followed by then setting retractors. Operative microscope was brought in and began the procedure with the anterior annulotomy. This was followed by then mobilizing the disc material from the disc space including the cartilage from the endplates. This process continued until a thorough discectomy has been performed, to the posterior aspect. The posterior spondylosis was then removed with a combination of high-speed bur followed by then curettes and Kerrison rongeurs with removing the spondylosis, the posterior annulus and posterior longitudinal ligament out to the uncinates on both sides with additional decompression. Once this was completed, trials were then obtained and inserted, selecting the 13 x 15 mm size, 4.5 mm in height for the device. This device was then obtained, and then tapped into position with excellent position on AP and lateral views. The distractor pins were then removed and bone wax was applied to the insertion sites followed by then final images. The surgical site was then inspected no issues were noted, vancomycin powder was placed. Operative site was closed with 3-0 Vicryl sutures including a subcuticular followed by benzoin and Steri-Strips. Sterile dressing was applied, the patient was taken recovery room satisfactory condition. I attest to the content of the Intraoperative Record and any orders documented therein. Any exceptions are noted below.
[2024-08-09] MEDS: ATORVASTATIN 10 MG TAB PO SCH (20:44)
[2024-08-09] MEDS: PANTOprazole 40 MG TAB PO SCH (20:44)
[2024-08-09] MEDS: DOCUSATE SODIUM/SENNA 50/8.6MG TAB PO SCH (20:44)
[2024-08-09] MEDS: SERTRALINE HCL 100 MG TABLET PO SCH (20:45)
[2024-08-09] MEDS: oxyCODONE/ACETAMINOPHEN 5mg/325mg TAB PO PRN (22:52)
[2024-08-10 00:46] VITALS: RESP 16
[2024-08-10] MEDS: POLYETHYLENE (MIRALAX) 17 GM PACK PO SCH (05:02)
[2024-08-10 07:20] LABS: Basophils # (auto) 0.03 K/uL (0.00-0.20); Basophils % (auto) 0.2 %; Eosinophils # (auto) 0.02 K/uL (0.00-0.50); Eosinophils % (auto) 0.2 %; Hematocrit (blood only) 39.4 % (37.0-47.0); Hemoglobin 13.1 g/dl (12.0-16.0); Immature Granulocytes # (auto) 0.06 K/uL (0.01-0.20); Immature Granulocytes % (auto) 0.5 %; Lymphocytes # (auto) 2.37 K/uL (1.20-3.40); Lymphocytes % (auto) 19.7 %; Mean Corpuscular Hemoglobin 29.5 pg (25.0-34.0); Mean Corpuscular Hgb Conc 33.2 g/dL (32.0-36.0); Mean Corpuscular Volume 88.7 fL (80.0-100.0); Mean Platelet Volume 9.9 fL (9.4-12.4); Monocytes # (auto) 0.67 K/uL (0.11-0.59); Monocytes % (auto) 5.6 %; Neutrophils # (auto) 8.86 K/uL (1.40-6.50); Neutrophils % (auto) 73.8 %; Platelet Count 250 K/uL (130-400); RDW Standard Deviation 39.3 fL (36.4-46.3); Red Blood Count 4.44 M/uL (4.20-5.40); White Blood Count 12.01 K/ul (4.8-10.8)
[2024-08-10 07:28] VITALS: BP 155/88; PULSE 80; TEMP 98.1; O2SAT 95
--- NOTE | 2024-08-10 07:43 | Discharge Summary ---
Date of Service August 10, 2024 Admission HPI (Per Admitting) Cervical radiculopathy Principal Diagnosis Same as "Discharge Diagnosis" noted below under Discharge Instructions. Discharge Data Consultations 08/09/24 10:55 Consult Hospitalist Routine Procedures Performed Operation Date: 08/09/24 07:15 Actual Procedures p C5-C6 Artificial Disc Arthroplasty(Not Applicable) - Kranthi De La Rosa MD Ordered Studies 08/09/24 FL cervical 2-3V Routine Hospital Course (1) Cervical disc disorder at C5-C6 level with radiculopathy: Plan Discharge home PG Care Time/CCT Total # of Minutes Spent Total Time Spent with Patient: Total time spent is greater than 50% in coordination of care (as documented) at patient's floor/unit and/or counseling patient: Discharge Plan Discharge Items Patient Disposition: Home - Self-Care Reason For Visit: Cervical Disc Disorder at C5-C6 Level with Radicul Discharge Diagnosis: Same Activity: As commented below Lifting: No more than 10 pounds Bathing: May shower/bathe in 3 days Exercise/Sports: Wait until after follow-up appointment Weightbearing: Full weightbearing Non-emergency contact: Surgeon Call non-emergency contact if: your pain is worsening Follow-up/Referrals: Janae Jay MD [Primary Care Provider] - Diet: Regular Addtl Attending Provider Instructions: Oxycodone sent through ambulatory chart, Maintain Steri-Strips until follow-up. Pending Studies at Discharge: No Stand-Alone Forms: ImaginAb, Smoking Cessation Medications and DC Order Prescriptions: Continued estradiol [Yuvafem] 10 mcg tablet 10 mcg vaginal 2XWK Qty: 24 2RF atorvastatin [Lipitor] 10 mg tablet 10 mg PO QPM omeprazole 20 mg capsule,delayed release(DR/EC) 20 mg PO QPM calcium carbonate-vitamin D3 600 mg-5 mcg (200 unit) Tablet 1 tab PO DAILY Vitamin B2 With Magnesium 1 unit 1 tab PO DAILY sertraline 100 mg tablet 200 mg PO HS No Action oxycodone-acetaminophen 5-325 mg tablet 1 tab PO TID Qty: 16 0RF Discharge Orders: Discharge Order (Routine); Ordered 08/10/24 Ordered By: Kranthi De La Rosa Admission Data Admit Date/Time: 08/09/24 10:55 Attending Provider: Kranthi De La Rosa Admit Provider: Kranthi De La Rosa Primary Care Provider: Janae Jay Other Providers: Misha Miller
[2024-08-10 07:50] LABS: BUN Creatinine Ratio 14.3 (10-20); Creatinine Clr Calc Pharmacy 81.9 ml/min
--- NOTE | 2024-08-10 07:50 | Orthopedic Progress Note ---
Date of Service August 10, 2024 Subjective Patient seen and examined, no issues with operative site, no swallowing issues. Surgical site dry, motor intact. Impression/plan: 1 day status post C5-6 anterior decompression artificial disc replacement, discharge home and follow-up in 2 weeks, prescription sent through ambulatory chart. Review of Systems All systems reviewed & are unremarkable except as noted in HPI & below. Physical Exam . Results & Data Results & Data Laboratory Results . Diagnostic Findings . PG Care Time/CCT Total # of Minutes Spent Total Time Spent with Patient: Total time spent is greater than 50% in coordination of care (as documented) at patient's floor/unit and/or counseling patient: Coding Level of Care Code 31523 Post Operative Follow-Up
== END 2024-08-10 10:40 | disposition home or self-care (01) ==
LOC: ASU 05:14 → 3E 05:14